=== PATIENT | female | born 1995 | race Caucasian/White ===

== ENCOUNTER 2017-05-17 19:13 | Inpatient (IN) | payer MEDICAID ==
[2017-05-17] MEDS ORDERED: NS 1,000 ML IV ONE (19:35)
[2017-05-17] MEDS ORDERED: DEXAMETHASONE 10 MG/ML VIAL IVP ONE (19:35)
[2017-05-17] MEDS ORDERED: OXYCODONE/APAP 5/325 TAB PO ONE (19:35)
--- NOTE | 2017-05-17 19:41 | EDPHY ---
General Narrative: CHIEF COMPLAINT: Sore throat HISTORY OF PRESENT ILLNESS: Patient presents with complaints of sore throat. Originally started on Tuesday. It was symmetric at 1st but now more so on the right than the left. She was seen at an urgent care on Tuesday with a reportedly positive strep test. She was prescribed penicillin VK, 500 mg 3 times daily. She has been taking this as prescribed. The symptoms have steadily worsened since Tuesday. The right tonsil now is more painful and appears larger to her. Difficult to take liquids. Unable to tolerate solids. Difficulty stain hydrated due to the pain. No fever. No headache. The pain does radiate to the right ear and jaw. No other associated complaints or modifying factors. REVIEW OF SYSTEMS: Ten systems reviewed and are negative unless otherwise noted in the HPI PCP: None locally. Physician in [place] SPECIALISTS: None PAST MEDICAL HISTORY: None SOCIAL HISTORY: Nonsmoker. Occasional alcohol. Occasional marijuana use. Currently student [employer] FAMILY HISTORY: Noncontributory EXAMINATION General Appearance: Alert, no distress Head: normocephalic, atraumatic Eyes: Pupils equal and round, no conjunctival pallor or injection ENT, Mouth: Voice is mildly muffled. No trismus. Mucous membranes moist. Moderate swelling of both tonsils, right slightly greater than left. There is exudate on both tonsils. The airway is patent. Uvula is at 1st midline with slight deviation to the right intermittently. Neck: Normal inspection, supple. Anterior cervical lymphadenopathy. No rigidity or meningismus. Cardiovascular: Regular rate and rhythm. No murmur. Neurological: A&O, nonfocal, strength is symmetric extremities. Skin: Warm and dry. No purpura. No petechiae. No urticaria. Extremities: Nontender, no pedal edema Psychiatric: Mood and affect normal DIFFERENTIAL DIAGNOSES: Including but not limited to strep pharyngitis, mononucleosis, peritonsillar abscess, pharyngeal abscess, retropharyngeal abscess MDM: 7:40 p.m. Acute pharyngitis with reportedly positive strep test. There is mild asymmetry of the tonsils. There is no trismus. Her airway is widely patent. The uvula is midline at times, and does slightly deviated to the right. This varies with swallowing. She is in no acute distress. Vital signs are stable. I have ordered IV placement, IV fluid, IV steroid, CT of the neck soft tissue to rule out significant abscess. 8:40 p.m. Patient re-evaluated. She is starting to feel better with treatment. Airway remains patent. She is in no acute distress. CBC does reveal leukocytosis. CT pending. 9:40 p.m. Case discussed with radiologist Dr. Glass. CT scan findings discussed. Recommended ENT consultation. ENT has been paged 9:55 p.m. Case discussed with ENT physician Dr. Farmer. She will review the films and return my phone call. 10:[address] Farmer has reviewed the CT. She does not feel that there is any need for emergent surgical intervention. She does recommend that the patient be admitted to the hospitalist service for IV antibiotics, IV steroids and close monitoring. She would like the patient to be NPO and she would like to be contacted should the patient's status change. Plans for evaluation 1st thing in the morning. I will discuss with hospitalist. 10:15 p.m. Case discussed with hospitalist Dr. Hunt. He will admit the patient to his service. She is in stable condition. She is managing her airway without difficulty. She is in no acute distress. I discussed this with the patient she agrees to be admitted. She is feeling better than time of arrival. SUPERVISION: Patient was independently examined, but I discussed the case with my secondary supervising physician . Patient was evaluated and examined in conjunction with my secondary supervising physician as documented. We have both examined the patient. - Diagnostics Imaging Results: Imaging Impressions Neck CT 05/17/17 19:35 Impression: Inflammatory changes are noted rather extensively in the parapharyngeal soft tissues predominantly on the right with some extension posteriorly and anteriorly. There are several pockets of low attenuation with peripheral enhancement consistent with evolving peritonsillar abscess which may be multiloculated. Results called and discussed with Clement Reyes PA-C on 05/17/2017 at 21:36 - History Smoking Status: Current every day smoker - Objective Vital Signs: Initial Vital Signs Temperature (C) 97.7 F 05/17/17 19:17 Heart Rate 80 05/17/17 19:17 Respiratory Rate 16 05/17/17 19:17 Blood Pressure 132/79 H 05/17/17 19:17 O2 Sat (%) 97 05/17/17 19:17 O2 Delivery Mode Room Air Allergies/Adverse Reactions: No Known Allergies Allergy (Unverified 05/17/17 19:16) Home Medications: Medication Instructions Recorded Penicillin VK 05/17/17 Laboratory Results: Laboratory Results 05/17/17 19:53 05/17/17 19:53 05/17/17 05/17/17 05/17/17 19:53 19:53 19:53 WBC 15.83 10^3/uL H 10^3/uL (3.80-9.50) RBC 4.38 10^6/uL 10^6/uL (4.18-5.33) Hgb 13.7 g/dL g/dL (12.6-16.3) Hct 39.0 % % (38.0-47.0) MCV 89.0 fL fL (81.5-99.8) MCH 31.3 pg pg (27.9-34.1) MCHC 35.1 g/dL g/dL (32.4-36.7) RDW 12.7 % % (11.5-15.2) Plt Count 266 10^3/uL 10^3/uL (150-400) MPV 10.0 fL fL (8.7-11.7) Neut % (Auto) 73.3 % % (39.3-74.2) Lymph % (Auto) 16.0 % % (15.0-45.0) [place] % (Auto) 9.2 % % (4.5-13.0) Eos % (Auto) 0.5 % L % (0.6-7.6) Baso % (Auto) 0.4 % % (0.3-1.7) Nucleat RBC Rel Count 0.0 % % (0.0-0.2) Absolute Neuts (auto) 11.60 10^3/uL H 10^3/uL (1.70-6.50) Absolute Lymphs (auto) 2.53 10^3/uL 10^3/uL (1.00-3.00) Absolute Monos (auto) 1.46 10^3/uL H 10^3/uL (0.30-0.80) Absolute Eos (auto) 0.08 10^3/uL 10^3/uL (0.03-0.40) Absolute Basos (auto) 0.06 10^3/uL 10^3/uL (0.02-0.10) Absolute Nucleated RBC 0.00 10^3/uL 10^3/uL (0-0.01) Immature Gran % 0.6 % % (0.0-1.1) Immature Gran # 0.10 10^3/uL 10^3/uL (0.00-0.10) Sodium 139 mEq/L mEq/L (134-144) Potassium 3.6 mEq/L mEq/L (3.5-5.2) Chloride 104 mEq/L mEq/L (97-110) Carbon Dioxide 22 mEq/l mEq/l (22-31) Anion Gap 13 mEq/L mEq/L (8-16) BUN 10 mg/dL mg/dL (7-23) Creatinine 0.6 mg/dL mg/dL (0.6-1.0) Estimated GFR > 60 Glucose 96 mg/dL mg/dL (70-100) Calcium 9.3 mg/dL mg/dL (8.5-10.4) Beta HCG, Qual NEGATIVE Monoscreen NEGATIVE (NEGATIVE) Medications Given: Clindamycin Phosphate/Dextrose (Cleocin 900 Mg (Premix)) 50 mls @ 100 mls/hr IV EDNOW ONE PRN Reason: Protocol Stop: 05/17/17 22:21 Last Admin: 05/17/17 22:10 Dose: 50 mls Discontinued Medications Dexamethasone (Decadron Injection) 10 mg IVP EDNOW ONE Stop: 05/17/17 19:36 Last Admin: 05/17/17 20:00 Dose: 10 mg Sodium Chloride (Ns) 1,000 mls @ 0 mls/hr IV EDNOW ONE; Wide Open PRN Reason: Protocol Stop: 05/17/17 19:36 Last Admin: 05/17/17 19:51 Dose: 1,000 mls Oxycodone/Acetaminophen (Percocet 5/325) 1 tab PO EDNOW ONE Stop: 05/17/17 19:36 Last Admin: 05/17/17 19:59 Dose: 1 tab Departure - Departure Disposition: [facility] Inpatient Acute Clinical Impression: Peritonsillar abscess Condition: Good Referrals: NONE *PRIMARY CARE P,. [Primary Care Provider] - As per Instructions
[2017-05-17] MEDS ORDERED: IOPAMIDOL (ISOVUE-300) 100 ML BTL ONE (19:45)
[2017-05-17 20:06] LABS: % IMMATURE GRANULYOCYTES 0.6 % (0.0-1.1); ADD DIFF? NO; ADD MORPH? NO; ADD SCAN? NO; ATYPICAL LYMPHOCYTE FLAG 30 (0-99); FRAGMENT RBC FLAG 0 (0-99); HEMOGLOBIN 13.7 g/dL (12.6-16.3); LEFT SHIFT FLG 50 (0-99); LIPEMIA HEMOLYSIS FLAG 90 (0-99); MEAN CELL HEMOGLOBIN 31.3 pg (27.9-34.1); MEAN CELL HEMOGLOBIN CONCENTR. 35.1 g/dL (32.4-36.7); PLATELET CLUMPS FLAG 0 (0-99); PLATELET COUNT 266 10^3/uL (150-400); RED BLOOD CELL COUNT 4.38 10^6/uL (4.18-5.33); RED CELL DISTRIBUTION WIDTH 12.7 % (11.5-15.2)
[2017-05-17 20:22] LABS: BHCG-QUALITATIVE NEGATIVE
[2017-05-17 20:23] LABS: MONO TEST NEGATIVE (NEGATIVE)
[2017-05-17 20:24] LABS: ANION GAP 13 mEq/L (8-16); CALCIUM 9.3 mg/dL (8.5-10.4); CARBON DIOXIDE 22 mEq/l (22-31); CHLORIDE 104 mEq/L (97-110); CREATININE 0.6 mg/dL (0.6-1.0); GLOMERULAR FILTRATION RATE > 60; GLUCOSE 96 mg/dL (70-100); POTASSIUM 3.6 mEq/L (3.5-5.2); SODIUM 139 mEq/L (134-144)
[2017-05-17] MEDS ORDERED: CLINDAMYCIN 900 MG/DEXTROSE 50 ML IV ONE (21:52)
[2017-05-17] MEDS ORDERED: ONDANSETRON DISINTEGRATING 4 MG TAB PO PRN (22:17)
[2017-05-17] MEDS ORDERED: ONDANSETRON 4 MG/2 ML VIAL IVP PRN (22:17)
[2017-05-17] MEDS ORDERED: ACETAMINOPHEN 325 MG TAB PO PRN (22:17)
[2017-05-17] MEDS ORDERED: NS 1,000 ML IV SCH (22:30)
--- NOTE | 2017-05-17 22:54 | PDGENHP ---
History and Physical - Chief Complaint Throat pain - History of Present Illness 21 yo F w/ no significant PMHx presents w/ throat pain. Patient first noticed right sided throat discomfort on Tuesday. On Tuesday she went to a clinic and was diagnosed with Strep throat, for which she was prescribed penicillin. Despite this, her symptoms worsened and included fever, swelling, and difficulty swallowing. As a result she came to the ED for evaluation. In the ED exam was c/w damian-tonsillar abscess. CT was obtained, which confirmed evolving abscess. Case was discussed w/ ENT and patient was admitted for further care. She is currently symptomatically improved after fluids, steroids, and antibiotics. History Information - Allergies/Home Medication List Allergies/Adverse Reactions: No Known Allergies Allergy (Unverified 05/17/17 19:16) Home Medications: Penicillin VK 05/17/17 [Last Taken Unknown] I have personally reviewed and updated: family history, medical history - Past Medical History no pertinent PMH - Family History Additional family history: Asked, denies - Social History Smoking Status: Current every day smoker Review of Systems Review of Systems: ROS: 10pt was reviewed & negative except for what was stated in HPI & below Physical Exam Physical Exam: Temp Pulse Resp BP Pulse Ox 36.7 C 68 18 115/65 96 05/17/17 22:22 05/17/17 22:22 05/17/17 22:22 05/17/17 22:22 05/17/17 22:22 Constitutional: appears nourished, uncomfortable Eyes: PERRL, EOMI Ears, Nose, Mouth, Throat: moist mucous membranes, other (R tonsilar swelling w / exudates visible, asymmetry to anterior neck) Cardiovascular: regular rate and rhythym, no murmur, rub, or gallop Respiratory: no respiratory distress, clear to auscultation Gastrointestinal: normoactive bowel sounds, soft, non-tender abdomen Skin: warm, normal color Musculoskeletal: full muscle strength, no muscle tenderness Neurologic: AAOx3, CN II-XII Intact Psychiatric: interacting appropriately, not anxious Lab Data & Imaging Review 05/17/17 19:53 05/17/17 19:53 WBC 15.83 10^3/uL (3.80-9.50) H 05/17/17 19:53 RBC 4.38 10^6/uL (4.18-5.33) 05/17/17 19:53 Hgb 13.7 g/dL (12.6-16.3) 05/17/17 19:53 Hct 39.0 % (38.0-47.0) 05/17/17 19:53 MCV 89.0 fL (81.5-99.8) 05/17/17 19:53 MCH 31.3 pg (27.9-34.1) 05/17/17 19:53 MCHC 35.1 g/dL (32.4-36.7) 05/17/17 19:53 RDW 12.7 % (11.5-15.2) 05/17/17 19:53 Plt Count 266 10^3/uL (150-400) 05/17/17 19:53 MPV 10.0 fL (8.7-11.7) 05/17/17 19:53 Neut % (Auto) 73.3 % (39.3-74.2) 05/17/17 19:53 Lymph % (Auto) 16.0 % (15.0-45.0) 05/17/17 19:53 [place] % (Auto) 9.2 % (4.5-13.0) 05/17/17 19:53 Eos % (Auto) 0.5 % (0.6-7.6) L 05/17/17 19:53 Baso % (Auto) 0.4 % (0.3-1.7) 05/17/17 19:53 Nucleat RBC Rel Count 0.0 % (0.0-0.2) 05/17/17 19:53 Absolute Neuts (auto) 11.60 10^3/uL (1.70-6.50) H 05/17/17 19:53 Absolute Lymphs (auto) 2.53 10^3/uL (1.00-3.00) 05/17/17 19:53 Absolute Monos (auto) 1.46 10^3/uL (0.30-0.80) H 05/17/17 19:53 Absolute Eos (auto) 0.08 10^3/uL (0.03-0.40) 05/17/17 19:53 Absolute Basos (auto) 0.06 10^3/uL (0.02-0.10) 05/17/17 19:53 Absolute Nucleated RBC 0.00 10^3/uL (0-0.01) 05/17/17 19:53 Immature Gran % 0.6 % (0.0-1.1) 05/17/17 19:53 Immature Gran # 0.10 10^3/uL (0.00-0.10) 05/17/17 19:53 Sodium 139 mEq/L (134-144) 05/17/17 19:53 Potassium 3.6 mEq/L (3.5-5.2) 05/17/17 19:53 Chloride 104 mEq/L (97-110) 05/17/17 19:53 Carbon Dioxide 22 mEq/l (22-31) 05/17/17 19:53 Anion Gap 13 mEq/L (8-16) 05/17/17 19:53 BUN 10 mg/dL (7-23) 05/17/17 19:53 Creatinine 0.6 mg/dL (0.6-1.0) 05/17/17 19:53 Estimated GFR > 60 05/17/17 19:53 Glucose 96 mg/dL (70-100) 05/17/17 19:53 Calcium 9.3 mg/dL (8.5-10.4) 05/17/17 19:53 Beta HCG, Qual NEGATIVE 05/17/17 19:53 Monoscreen NEGATIVE (NEGATIVE) 05/17/17 19:53 Imaging Review: CT Neck w/ extensive inflammation and evolving R peritonsillar abscess. Assessment & Plan Assessment: 21 yo F admitted for management of peritonsillar abscess. Plan: 1. R peritonsillar abscess - CT c/w evolving, early abscess. WBC 15 but no other signs of sepsis physiology at this time. Case discussed with ENT in the ED , who requested admission for observation but no urgent intervention necessary. - Admit for observation - S/p dexamethasone 10 mg IV x1 in ED, will continue 4 mg PO q6h - Clindamycin IV, mIVF, pain control - ENT consulted, appreciate assistance Diet - Clears Code - Full Ppx - Low risk Dispo - Admit to observation status
[2017-05-18] MEDS: DEXAMETHASONE 4 MG TAB PO SCH ×3 (00:06→12:17)
[2017-05-18] MEDS: HYDROmorphONE/DILAUDID 1 MG/ML INJ IVP PRN ×2 (01:33→06:04)
[2017-05-18 04:52] LABS: % IMMATURE GRANULYOCYTES 1.1 % (0.0-1.1); ABSOLUTE IMMATURE GRANULOCYTES 0.13 10^3/uL (0.00-0.10); ADD DIFF? NO; ADD MORPH? NO; ADD SCAN? NO; ATYPICAL LYMPHOCYTE FLAG 30 (0-99); FRAGMENT RBC FLAG 0 (0-99); HEMATOCRIT 38.8 % (38.0-47.0); HEMOGLOBIN 13.4 g/dL (12.6-16.3); LEFT SHIFT FLG 80 (0-99); LIPEMIA HEMOLYSIS FLAG 90 (0-99); MEAN CELL HEMOGLOBIN 31.2 pg (27.9-34.1); MEAN CELL HEMOGLOBIN CONCENTR. 34.5 g/dL (32.4-36.7); MEAN CELL VOLUME 90.4 fL (81.5-99.8); MEAN PLATELET VOLUME 10.1 fL (8.7-11.7); PLATELET CLUMPS FLAG 0 (0-99); PLATELET COUNT 278 10^3/uL (150-400); RED BLOOD CELL COUNT 4.29 10^6/uL (4.18-5.33); RED CELL DISTRIBUTION WIDTH 12.7 % (11.5-15.2)
[2017-05-18 05:10] LABS: ANION GAP 11 mEq/L (8-16); CALCIUM 9.3 mg/dL (8.5-10.4); CARBON DIOXIDE 25 mEq/l (22-31); CHLORIDE 104 mEq/L (97-110); CREATININE 0.6 mg/dL (0.6-1.0); GLOMERULAR FILTRATION RATE > 60; GLUCOSE 143 mg/dL (70-100); POTASSIUM 4.9 mEq/L (3.5-5.2); SODIUM 140 mEq/L (134-144)
[2017-05-18] MEDS: CLINDAMYCIN 600 MG/DEXTROSE 50 ML IV SCH ×3 (05:55→21:28)
--- NOTE | 2017-05-18 08:38 | GCON ---
[f rep st] CONSULTATION DATE OF CONSULTATION: 05/18/2017 CHIEF COMPLAINT: Sore throat. HISTORY OF PRESENT ILLNESS: This is a pleasant 21-year-old woman who has a history of a sore throat. This started on Tuesday. This was a little bit more on the right. On Tuesday she went to Urgent Care and had a positive strep test and was given penicillin. Despite that, she felt like her symptoms were getting worse, and last night it felt like she was having a little bit more difficulty swallowing like it just was not going down right. She denied shortness of breath. She went to the ER for evaluation. In the ER, she was evaluated and a CT scan was done. CT scan showed possible phlegmon with significant swelling, but no drainable abscess, and she was admitted for IV antibiotics and steroid, and I was called for evaluation. She is currently on clindamycin. She got Decadron last night as well as another dose this morning. She states that she is feeling better. Her swallowing is still not perfect, but it is improved. Her pain is little bit improved. She denies any shortness of breath. She denies any other further complaints. PAST MEDICAL HISTORY: None pertinent. FAMILY HISTORY: None significant. SOCIAL HISTORY: She does smoke daily. REVIEW OF SYSTEMS: Positive for the above and negative for any further complaints. PHYSICAL EXAM: GENERAL: She is awake, alert, in no apparent distress. HEENT: Cranial nerves 2-12 are grossly intact. Exam of the ears shows an intact TM and no middle ear effusion bilaterally. Nose shows no significant purulence or discharge. Oral cavity and oropharynx show tonsils of 2+. These are cryptic and have some tonsilloliths and a little bit of mild exudate on this. There is not a significant asymmetry between the right and the left. Uvula is midline. There is no palatal fullness. Tongue is mobile and midline and elevates normally. NECK: Shows no significant lymphadenopathy or masses. She moves all extremities x4. PSYCHIATRIC: She is interacting appropriately. Not anxious or flat. LAB DATA: Last night her white count was almost 16. This morning it is 11. Imaging: CT scan again was reviewed. This shows some significant fullness and edema on the right side with some areas of potential early phlegmon, but no drainable abscess. ASSESSMENT AND PLAN: This is a patient who is 21 years old who has a positive strep test and an early phlegmon. CT scan was evaluated as well as the patient was evaluated, and there is definitely no drainable abscess at this point. I tend to think she will continue to improve on IV antibiotics. I recommend continuing IV antibiotics for another 24 hours or so, and assuming she has improved tomorrow and continues to get better, she could discontinue tomorrow. I do not necessarily think we need to keep doing the steroids after this dose this morning. She was encouraged to call me if her symptoms get worse. I will see her tomorrow for re-evaluation, and please call if you have any other questions. My cell phone number is [phone]. /[id number]/MODL MTDD
--- NOTE | 2017-05-18 12:13 | HOSPPROG ---
Hospitalist Progress Note Assessment/Plan: 21 yo F admitted for management of peritonsillar abscess. First encounter, chart reviewed. Plan: 1. R peritonsillar abscess - CT c/w evolving, early abscess. WBC 15 Appreciate ENT consult S/p dexamethasone 10 mg IV x1 in ED, DC per ENT recs Clindamycin IV, mIVF, pain control Diet - Clears Code - Full Ppx - Low risk Dispo - Change to inpatient She will need continued care in the hospital setting IV abx, pain control Objective: Vital Signs Temp Pulse Resp BP Pulse Ox 36.6 C 63 18 103/65 96 05/18/17 09:09 05/18/17 09:09 05/18/17 09:09 05/18/17 09:09 05/18/17 09:09 Laboratory Results 05/18/17 04:26 05/18/17 04:26 05/17/17 05/18/17 05/19/17 05:59 05:59 05:59 Intake Total 1600 Balance 1600 ICD10 Worksheet Patient Problems: Problems Problem Status Onset Peritonsillar abscess Acute
[2017-05-18] MEDS: oxyCODONE IR 5 MG TAB PO PRN ×2 (12:31→21:28)
--- NOTE | 2017-05-18 14:01 | PDMN ---
Medical Necessity Medical necessity: change to IP; los>2mn for R peritonsillar abscess w/evolving early abscess; requires continued IV abx, IVF and pain control; per order and progress note 05/18/17
--- NOTE | 2017-05-18 14:38 | ASMTCMCOM ---
CM Note CM Note Notes: Pt admitted for peritonsilar abscess. She will likely DC on oral ABX with no DC needs. C/M available if needs change. Date Signed: 05/18/2017 02:38 PM Electronically Signed By:Diana Miller LCSW
[2017-05-19] MEDS: CLINDAMYCIN 600 MG/DEXTROSE 50 ML IV SCH ×2 (05:14→13:08)
[2017-05-19] MEDS: oxyCODONE IR 5 MG TAB PO PRN ×2 (07:51→13:08)
[2017-05-19] MEDS ORDERED: HYDROmorphone HCL/NS/PF 0.4 MG/2 ML SYR IVP PRN (07:56)
[2017-05-19] MEDS ORDERED: DEXAMETHASONE 10 MG/ML VIAL IVP ONE ×2 (13:49→22:00)
--- NOTE | 2017-05-19 13:54 | SOAPPROG ---
SOAP Progress Note Assessment/Plan: Assessment: POD 2 IV Abx. Initially seen at 1230 and she was feeling better, ready to go home though about 1 hr later c/o more pain and swollen feeling in throat. Seen again and scope done. OP region looks overall pretty symmetric though lower pharyngeal region is more edematous, sm amt of exudate inferior to tonsil. Mild edema of arytenoid, B VFs mobile, AW patent. I don't see an obvious area of discrete fullness to drain, bronson in PT region. Want to give 10 mg IV Decadron now and get CT neck with contrast to see if has formed more cohesive, true abscess requiring drainage. Not able to be d/c. Have spoken to Brittney with hospital medicine. Also rec ID consult. 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
[2017-05-19] MEDS ORDERED: IOPAMIDOL (ISOVUE-300) 100 ML BTL ONE (14:01)
[2017-05-19] MEDS: AMPICILLIN/SULBACTAM 3 GM in NS 100 ML IV SCH ×2 (15:30→18:54)
--- NOTE | 2017-05-19 16:43 | ASMTCMCOM ---
CM Note CM Note Notes: Met with pt who had questions about Medicaid coverage of her bill. Pt recently moved from [place] and does not have a PCP yet. Gave her info about [facility] as well as info on [facility] through [employer] on [employer]. Pt will DC on oral ABX per Dr Jordan. No other DC needs identified. Date Signed: 05/19/2017 04:43 PM Electronically Signed By:Diana Miller LCSW
--- NOTE | 2017-05-19 19:14 | GCON ---
[f rep st] CONSULTATION INFECTIOUS DISEASE CONSULTATION. DATE OF CONSULTATION: 05/19/2017 REASON FOR CONSULTATION: Right parapharyngeal phlegmon/ small abscess, HISTORY OF PRESENT ILLNESS: A 21-year-old woman without significant past medical history, who developed right severe throat pain on May 14, 2017, and subsequently presented to Urgent Care on the . She was found to have a positive screen for group A strep and started on Pen-VK 3 times daily, which she took on Tuesday the and Tuesday the . Starting on the , she felt like there was increasing swelling on the right side of her throat and her throat was closing and she presented to the emergency room for further evaluation. Patient was found to have a hypodense complex area of phlegmonous area in the area of the right parapharyngeal area and was admitted for IV antibiotics. Patient was started on IV clindamycin and initially felt significantly better in the evening of the and the morning of the . Later in the morning on the , patient developed worsening sharp pain on the right side radiating to her ear and patient returned to the CT scan which showed persistent phlegmonous changes in the right parapharyngeal area, essentially unchanged. ID was consulted for management of IV antibiotics. Patient initially had a fever on Tuesday and Tuesday, but has now resolved. She has no associated myalgias. No sick contacts. She is not in contact with small children. PAST MEDICAL HISTORY: She last had strep throat 3-4 years ago and she reports having lots of strep throat as a kid. She has an IUD in place. PAST SURGICAL HISTORY: Reviewed and noncontributory. 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 She is originally from [place]. 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 She smokes tobacco. Drinks alcohol and uses marijuana. She is in a monogamous relationship with her boyfriend and does not have concern for sexually transmitted infections. FAMILY HISTORY: Patient's parents are healthy with no known diseases that run in the family. ALLERGIES: NKDA. MEDICATIONS: Clindamycin 600 mg IV daily, oxycodone as needed, Zofran as needed , IV hydromorphone as needed. Patient received an additional dose of dexamethasone 10 mg IV push today and Tylenol as needed. REVIEW OF SYSTEMS: A complete 10-point review of systems was performed and is negative except as mentioned in the HPI. PHYSICAL EXAM: VITAL SIGNS: Blood pressure 124/70, heart rate 62, respiratory rate 16, saturation 96% on room air, temperature 36.5. GENERAL: This is a young woman sitting in bed in no acute distress. HEENT: Pupils are reactive bilaterally. Oropharynx: Moist mucous membranes. Tongue was midline. She had no pain with protrusion of the tongue which was present earlier. She has obvious swelling of the right side of her posterior pharynx without exudate or ulceration. Her uvula was midline. NECK: She had some mild tenderness to palpation on the right side, but no lymphadenopathy was present. Neck was supple. CARDIOVASCULAR: Regular rate, no murmurs. CHEST: Clear to auscultation bilaterally. ABDOMEN: Soft, nontender. Bowel sounds are present. EXTREMITIES: No clubbing, cyanosis, or edema. NEUROLOGIC: She is alert and oriented x4. Moving all 4 extremities equally. SKIN: No rashes were present. LABORATORY: White count on admission is 15.8, today, 11.3. Creatinine 0.6. Beta HCG negative. Baxter screen negative. A/P 21-year-old healthy woman with group A strep pharyngitis complicated by deeper right parapharyngeal inflammation/phlegmon with potentially very tiny abscess, less than 1 cm. Do not feel this reflects necessarily a "penicillin failure". Suspect the patient was destined to develop this parapharyngeal process and do not consider this a failure of penicillin to treat GAS, but when considering deep neck space infection it warrants improved anaerobic GNR coverage. Clindamycin can be used, but would only use in the case of allergy because less favorable characteristics including it is bacteristatic and there can be inducible resistance with GAS. Would recommend Unasyn IV for ongoing therapy, which will also include Fusobacterium. Will continue IV therapy until clinical improvement and likely transition to p.o. Augmentin to complete her course. Steroids per ENT. Will continue to see patient on a daily basis and continue to collaborate and coordinate with Dr. Farmer on discharge timing. Thank you for this consultation. We will continue to see on a daily basis. Time 55min >50% time spent with education and counseling regarding treatment of deep neck space infections, reasons for antibiotic changes. Also coordination of care with Dr. Farmer and Brittney Valdes NP and personal review of radiology. /[id number]/MODL MTDD
--- NOTE | 2017-05-19 20:44 | HOSPPROG ---
Hospitalist Progress Note Assessment/Plan: 21 yo F admitted for management of peritonsillar abscess. D/W Dr Canales and Dr Jordan. Plan: 1. R peritonsillar abscess - Strep CT c/w evolving, early abscess. WBC 15 Appreciate ENT consult S/p dexamethasone Clindamycin IV changed to Unasyn mIVF, pain control cont pulse ox hob elevate Diet - Clears Code - Full Ppx - Low risk Dispo - inpatient She will need continued care in the hospital setting IV abx, pain control Subjective: Feels like throat is swelling again. Problems with swallowing and pain. Objective: Vital Signs Temp Pulse Resp BP Pulse Ox 36.5 C 62 16 124/70 H 96 05/19/17 15:33 05/19/17 15:33 05/19/17 15:33 05/19/17 15:33 05/19/17 15:33 05/18/17 05/19/17 05/20/17 05:59 05:59 05:59 Intake Total 2500 600 Balance 2500 600 - Physical Exam Constitutional: no apparent distress, appears nourished, uncomfortable Eyes: PERRL, anicteric sclera, EOMI Ears, Nose, Mouth, Throat: moist mucous membranes, hearing normal, ears appear normal Cardiovascular: regular rate and rhythym, No JVD, No carotid bruit Respiratory: no respiratory distress, no rales or rhonchi, reduced air movement Gastrointestinal: normoactive bowel sounds, No tenderness, No ascites Skin: warm, normal color, No erythema Musculoskeletal: full muscle strength, no muscle tenderness, normal joint ROM Neurologic: AAOx3 Psychiatric: interacting appropriately, not anxious, not encephalopathic, thought process linear ICD10 Worksheet Patient Problems: Problems Problem Status Onset Peritonsillar abscess Acute
[2017-05-20] MEDS: AMPICILLIN/SULBACTAM 3 GM in NS 100 ML IV SCH ×4 (00:54→17:23)
[2017-05-20 05:25] LABS: % IMMATURE GRANULYOCYTES 1.1 % (0.0-1.1); ABSOLUTE IMMATURE GRANULOCYTES 0.22 10^3/uL (0.00-0.10); ADD DIFF? NO; ADD MORPH? NO; ADD SCAN? NO; ATYPICAL LYMPHOCYTE FLAG 10 (0-99); FRAGMENT RBC FLAG 0 (0-99); HEMOGLOBIN 13.1 g/dL (12.6-16.3); LEFT SHIFT FLG 30 (0-99); LIPEMIA HEMOLYSIS FLAG 80 (0-99); MEAN CELL HEMOGLOBIN 30.3 pg (27.9-34.1); MEAN CELL HEMOGLOBIN CONCENTR. 33.6 g/dL (32.4-36.7); MEAN CELL VOLUME 90.1 fL (81.5-99.8); PLATELET CLUMPS FLAG 10 (0-99); PLATELET COUNT 295 10^3/uL (150-400); RED BLOOD CELL COUNT 4.33 10^6/uL (4.18-5.33); RED CELL DISTRIBUTION WIDTH 12.5 % (11.5-15.2)
--- NOTE | 2017-05-20 08:47 | PCMIDPN ---
Assessment/Plan: # R parapharyngeal phlegmon complicating GAS pharyngitis. Patient report complete resolution of throat pain and near resolution of sensation of fullness. Elevated WBC likely related to steroid therapy. --continue Unasyn while hospitalized with plans to transition to Augmentin 875mg BID x 10 more days --discharge per ENT, patient strongly desires dc today based on improvement of sx --f/u with ENT alone likely sufficient, patient okay with f/u with ID PRN meds Unasyn 3gm IV q6, #1 Subjective: patient feeling much better denies throat pain no trouble eating sensation of throat fullness much improved denies diarrhea Objective: Vital Signs Temp Pulse Resp BP Pulse Ox 36.6 C 50 L 16 110/64 99 05/20/17 04:39 05/20/17 04:39 05/20/17 04:39 05/20/17 04:39 05/20/17 04:39 Laboratory Results 05/20/17 04:28 05/19/17 05/20/17 05/21/17 05:59 05:59 05:59 Intake Total 2500 1000 Balance 2500 1000 - Physical Exam General Appearance: alert, no apparent distress EENT: other (tongue midline), No pharyngeal erythema, No tonsillar exudate, No thrush Respiratory: No accessory muscle use Neck: supple, tender lateral (very mild on R), No lymphadenopathy (L), No lymphadenopathy (R) Skin: No rash Neuro/Psych: alert, normal mood/affect, oriented x 3 - Time Spent With Patient Time Spent with Patient: greater than 25 minutes Time Spent with Patient: Greater than 25 minutes spent on this patients care, greater than 50% of time spent counseling, educating, and coordinating care regarding the above mentioned plan. ICD10 Worksheet Patient Problems: Problems Problem Status Onset Peritonsillar abscess Acute
--- NOTE | 2017-05-20 13:58 | SOAPPROG ---
SOAP Progress Note Assessment/Plan: Assessment: Pt doing much better today. WBC high, likely steroid related. On Unasyn and received last dose of Decadron last night. FFL bascially normal, significantly better than yesterday's exam. Pt really wants to go home tonight. I spoke with Dr. Jordan and we agreed she could get another dose of Unasyn at 1800 then d/c after that. Shouldn't take 1st Augmentin dose until tomorrow am, then continue for 10 days. I will see her in my clinic on Tuesday for recheck. Should call [phone] to make appt. 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 She understands and agrees and will go to ER if feels she is worsening at all. Plan: 05/19/17 13:50 05/20/17 13:58- - Subjective: Pt states she feels sig better, basically normal. Swallowing well, breathing fine, voice is normal. 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 OP symmetric BOT with very minimal fullness R Most all of R pharyngeal and laryngeal edema from yesterday resolved completely clear AW, B VFS mobile, no obstruction Vital Signs Temp Pulse Resp BP Pulse Ox 36.6 C 59 L 17 113/60 91 L 05/20/17 08:00 05/20/17 08:00 05/20/17 08:00 05/20/17 08:00 05/20/17 08:00 Laboratory Results 05/20/17 04:28 05/19/17 05/20/17 05/21/17 05:59 05:59 05:59 Intake Total 2500 1000 Balance 2500 1000 - Pending Discharge Pending Discharge Within 24 Hours: Yes Pending Discharge Date: 05/21/17 Pending Discharge Time: 11:00 ICD10 Worksheet Patient Problems: Problems Problem Status Onset Peritonsillar abscess Acute
[2017-05-20 15:50] VITALS: BP 113/76; PULSE 75; RESP 16; TEMP 98.2; O2SAT 97
--- NOTE | 2017-05-20 18:51 | GDS ---
[f rep st] DISCHARGE SUMMARY DISCHARGE DIAGNOSES: 1. Right parapharyngeal phlegmon. 2. Group A strep pharyngitis. CONSULTATIONS: 1. Infectious Disease. 2. Ear, Nose and Throat. STUDIES AND PROCEDURES DONE: 1. CT of the neck. 2. Repeat CT of the neck. PHYSICAL EXAM: GENERAL: The patient is alert. VITAL SIGNS: Afebrile at 36.8, pulse 75, respirator y rate 16, blood pressure is 113/76. She is saturating 97% on room air. I have seen and evaluated t he patient on the day of discharge. HOSPITAL COURSE: The patient is a 21-year-old female who presented to the emergency room with compla ints of sore throat, difficulty swallowing. During this hospitalization, she was diagnosed with a ri ght parapharyngeal phlegmon as well as group A strep pharyngitis. She was treated with IV Unasyn and has significantly improved. She will be transitioned to Augmentin 875 mg p.o. twice daily for a tot al of 10 more days. She was also treated with Decadron during this hospitalization for supportive ma nagement. Her condition is improved. She does notably have a leukocytosis at the time of dispositio n, likely secondary to steroid. PLAN: She will follow up in the outpatient setting with Dr. Farmer of Ear, Nose [facility] Throat. She hutson s been educated to return to the emergency room if her pain returns or her difficulty with swallowing or breathing becomes more noticeable. She is in agreement with this plan. DISCHARGE MEDICATIONS: I have provided her a prescription for Augmentin 875 p.o. twice daily, which she is to begin on 05/21/2017. I have not discontinued the patient's previously prescribed home medic ations. I spent greater than 35 minutes in the care, coordination, and management of this patient's dispositi on. /[id number]/MODL
== END 2017-05-20 18:12 | disposition home or self-care (01) | DRG 153 ==
LOC: INTOOBSV 22:16 → F1N 23:53 → OBSVTOIN 05-18 12:37
PROVIDERS: ADMIT Student in an Organized Health Care Education/Training Program; ATTEND Hospitalist
PROC: 0CJS8ZZ Inspection of Larynx, Via Natural or Artificial Opening Endoscopic (ICD-10-PCS; principal; 2017-05-19)
DX: J39.0 Retropharyngeal and parapharyngeal abscess (principal); J02.0 Streptococcal pharyngitis; F17.210 Nicotine dependence, cigarettes, uncomplicated
CPT/HCPCS: 96374; G0378; J0295; J1100; J1170; Q9967

== ENCOUNTER 2017-10-12 15:41 | Emergency (ER) | payer MEDICAID ==
[2017-10-12 16:01] VITALS: BP 138/78
--- NOTE | 2017-10-12 16:41 | EDPHY ---
H & P Time Seen by Provider: 10/12/17 16:12 HPI/ROS: CHIEF COMPLAINT: Wants STD check HISTORY OF PRESENT ILLNESS: 22-year-old female presents to the emergency department requesting possible STD check. The patient states that she was with her ex-boyfriend month and half ago. She had unprotected intercourse. At that time he did not apparently have any symptoms nor did she have any symptoms. He apparently called his ex-girlfriend today and explained that he could possibly have herpes. Patient has had cold sores in the past, however has never had vaginal sores or vaginal herpes. She [facility] which was all negative. Again the patient has no lesions now. She has no vaginal pain or discharge. She has not had intercourse in over a month and a half. REVIEW OF SYSTEMS: Constitutional: No fever, no chills. Eyes: No double or blurry vision. ENT: No sore throat. Respiratory: No cough, no shortness of breath. Cardiac: No chest pain. Gastrointestinal: No abdominal pain, vomiting or diarrhea. Genitourinary: No dysuria. Musculoskeletal: No neck or back pain. Skin: No rashes. Neurological: No headache. Past Medical/Surgical History: Negative Social History: [employer] student Smoking Status: Current every day smoker Physical Exam: General Appearance: Alert, no distress. Eyes: Pupils equal and round. Extraocular motions are all intact. ENT: Mouth: Mucous membranes moist. Respiratory: No wheezing, rhonchi, or rales, lungs are clear to auscultation. Cardiovascular: Regular rate and rhythm. Gastrointestinal: Abdomen is soft and nontender, no masses, no rebound or guarding, bowel sounds normal. Genitourinary: Deferred Neurological: Alert and oriented x 3, cranial nerves II through XII grossly intact Skin: Warm and dry, no rashes. Musculoskeletal: Nontender to palpate along the cervical, thoracic or lumbar spine. Neck is supple. Extremities: Full range of motion and no peripheral edema. Psychiatric: Patient is oriented X 3, there is no agitation. Constitutional: Initial Vital Signs Temperature (C) 36.9 C 10/12/17 15:58 Heart Rate 82 10/12/17 15:58 Respiratory Rate 16 10/12/17 15:58 Blood Pressure 138/78 H 10/12/17 15:58 O2 Sat (%) 100 10/12/17 15:58 O2 Delivery Mode Room Air Allergies/Adverse Reactions: No Known Allergies Allergy (Unverified 10/12/17 15:58) Medical Decision Making ED Course/Re-evaluation: 22-year-old female presents to the emergency department with concerns possible herpes. She states that her ex-boyfriend called her and may have herpes. She has no vaginal sores. She has not had intercourse with this person in over a month and a half and at that time he apparently had no lesions or symptoms. The patient was reassured. I do not think testing is necessary in the emergency department. [facility] I explained that she could follow up with primary care provider for possible herpes simplex IgG and IgM testing. She has had cold sores in the past but not for quite some time. She is comfortable being discharged. She declined any antiviral medicine now since she does not have any pain or any lesions. I think this is reasonable. Differential Diagnosis: Including but not limited to sexually transmitted infection, cellulitis, urinary tract infection, Departure - Departure Disposition: Home, Routine, Self-Care Clinical Impression: Concern about STD in female without diagnosis Condition: Good Instructions: Safe Sex (ED) Additional Instructions: Follow up with primary care provider as discussed. Return to the emergency department if you developed vaginal sores, vaginal bleeding, vaginal discharge, ridge pain with intercourse, or any other concerns. Since you do not have any open sores or vaginal lesions or vaginal pain, I do not think treatment for herpes is indicated. Referrals: Terrie Loja DO [Doctor of Osteopathy] - As per Instructions (Primary care provider combustion analyst)
== END 2017-10-12 16:49 | disposition home or self-care (01) ==
DX: Z03.89 Encounter for observation for other suspected diseases and conditions ruled out (principal); F17.200 Nicotine dependence, unspecified, uncomplicated